=== PATIENT | female | born 1935 | race Caucasian/White ===

== ENCOUNTER 2018-07-21 18:30 | Inpatient (IN) | payer OTHER ==
[~2018-07-21] VITALS: Ht 167.6 cm; Wt 79.8 kg
[2018-07-21 18:44] VITALS: BP 169/83
[2018-07-21] MEDS ORDERED: UNICOMPLEX M TA1 TA1 PO (18:54)
[2018-07-21] MEDS ORDERED: CALCIUM 500 +1 EAC5 PO (18:54)
[2018-07-21] MEDS ORDERED: GLUCOSAMINE HC500 MG PO (18:54)
[2018-07-21] MEDS ORDERED: ASPIR 8181 MG PO (18:55)
[2018-07-21] MEDS ORDERED: ARICEPT 5 MG TAB5 MG PO (18:55)
[2018-07-21] MEDS ORDERED: ALEVE220 MG PO (18:55)
[2018-07-21] MEDS ORDERED: LEXAPRO20 MG PO (18:55)
[2018-07-21 19:25] LABS: ABSOLUTE LYMPHOCYTES 0.7 thou/uL (0.8-5.3); ABSOLUTE MONOCYTES 0.6 thou/uL (0.0-1.2); ABSOLUTE NEUTROPHILS 3.1 thou/uL (1.6-8.1); BASOPHILS 0.8 %; EOSINOPHILS 1.1 %; HEMATOCRIT 42.5 % (37.0-47.0); HEMOGLOBIN 14.3 gm/dL (12.0-15.0); LYMPHOCYTES 15.6 %; MCHC 33.6 g/dL (28.0-37.0); MCV 95.4 fL (80.0-100.0); MONOCYTES 14.1 %; MPV 9.9 fl. (7.2-11.1); NUCLEATED RBCS 0 /100WBC; PLATELET COUNT* 126 thou/uL (150-400); POLYS 68.4 %; RBC 4.46 mil/uL (4.20-5.00); RDW-CV 13.2 % (10.5-14.5); WBC 4.5 thou/uL (4.0-11.0)
[2018-07-21 19:30] VITALS: BP 178/88
[2018-07-21 19:35] LABS: ANION GAP 8 mmol/L (7-16); APTT 25.9 Seconds (25.0-31.3); BUN 25 mg/dL (7-18); CALCIUM 8.5 mg/dL (8.5-10.1); CHLORIDE 104 mmol/L (98-107); CO2 27 mmol/L (21-32); GLUCOSE 185 mg/dL (70-99); POTASSIUM 3.3 mmol/L (3.5-5.1); PROTIME 10.2 Seconds (9.20-11.50); SODIUM 139 mmol/L (136-145)
[2018-07-21 19:54] LABS: ALBUMIN 3.4 g/dL (3.4-5.0); ALKALINE PHOSPHATASE 150 U/L (46-116); CK-MB MASS 2.6 ng/mL (<0.5-3.6); NT-PRO BRAIN NAT PEPTIDE 136 pg/mL (<300); SGOT 22 U/L (15-37); SGPT 19 U/L (30-65); TOTAL BILIRUBIN 0.3 mg/dL (<0.1-1.0); TOTAL PROTEIN 6.4 g/dL (6.4-8.2); TROPONIN-I LEVEL <0.06 ng/mL (<0.06)
[2018-07-21 20:22] LABS: URINE BILIRUBIN NEGATIVE (Negative); URINE BLOOD NEGATIVE (Negative); URINE CLARITY CLEAR; URINE COLOR YELLOW; URINE GLUCOSE-RANDOM NEGATIVE (Negative); URINE KETONES NEGATIVE (Negative); URINE LEUKOCYTES-REFLEX NEGATIVE (Negative); URINE PROTEIN NEGATIVE (Negative); URINE SPECIFIC GRAVITY >= 1.030 (1.005-1.030); URINE UROBILINOGEN 0.2 E.U./dl (0.2-1.0)
[2018-07-21 20:27] LABS: CASTS None Seen /LPF (None Seen); CRYSTALS None Seen /LPF (None Seen); SQUAMOUS 0-3 Few /LPF (0-3); URINE NITRITE-REFLEX POSITIVE (Negative); URINE RBC 0-2 Rare /HPF (0-2); URINE WBC-REFLEX 6-15 Few /HPF (0-5)
[2018-07-21 20:46] VITALS: BP 172/90
[2018-07-22] VITALS (7 sets, daily range): BP systolic 148–181; BP diastolic 70–91
--- NOTE | 2018-07-22 09:21 | EKG ---
[place] [address] ELECTROCARDIOGRAM REPORT Name: BRITANY COOPER Room: [address] ADM IN [facility]#: [id number] Admission: 07/21/18 Attend Phys: Aarti Griffin Discharge: Date of : 33 Report #: [id number] THIS REPORT FOR: //name// [facility] ED Test Date: 2018-07-21 Test Time: 19:34:50 Pat Name: BRITANY COOPER Department: Room: [facility] Gender: F Housetrailer Servicer: Zuleyma PERALTA : 1935 Requested By: Armando Cancino Order Number: [id number] MD: Shan De La Torre Measurements Intervals [place] Rate: 90 P: 49 FL: 223 QRS: -1 QRSD: 89 T: 63 QT: 382 QTc: 468 Interpretive Statements Sinus rhythm Prolonged FL interval LVH with secondary repolarization abnormality Baseline wander in lead(s) II,aVF No previous ECG available for comparison Electronically Signed On 07-22-2018 9:21:40 [employer]ODU[employer] SALES REPRESENTATIVE by Shan De La Torre [email or web address] <ELECTRONICALLY SIGNED> By: Shan De La Torre MD, [facility] 07/22/18 0921 33 33 Shan De La Torre MD, [facility] /EPI
[2018-07-23] VITALS: BP 168/73
[2018-07-23 04:00] VITALS: BP 173/82
[2018-07-23 08:00] VITALS: BP 185/84
[2018-07-23] MEDS ORDERED: KEFLEX500 M2 PO (10:58)
[2018-07-23 11:00] VITALS: BP 185/84
[2018-07-23 12:00] VITALS: BP 164/81
== END 2018-07-23 13:55 | disposition home or self-care (01) | DRG 690 ==
LOC: M.ERS 18:30 → M.2W 20:09 → M.TBA-ER 20:09 → M.2W 21:33
PROVIDERS: Family Medicine; ADMIT Internal Medicine
DX: N39.0 Urinary tract infection, site not specified (principal); F03.90 Unspecified dementia, unspecified severity, without behavioral disturbance, psychotic disturbance, mood disturbance, and anxiety; R41.0 Disorientation, unspecified; M19.90 Unspecified osteoarthritis, unspecified site; Z90.11 Acquired absence of right breast and nipple; Z85.3 Personal history of malignant neoplasm of breast; Z88.2 Allergy status to sulfonamides; Z88.8 Allergy status to other drugs, medicaments and biological substances; Z87.891 Personal history of nicotine dependence; Z79.899 Other long term (current) drug therapy

== ENCOUNTER 2018-09-15 18:58 | Inpatient (IN) | payer OTHER ==
[~2018-09-15] VITALS: Ht 175.3 cm; Wt 79.6 kg
[~2018-09-15 18:58] MED LIST: ALEVE220 MG PO; ARICEPT 5 MG TAB5 MG PO; ASPIR 8181 MG PO; CALCIUM 500 +1 EAC5 PO; GLUCOSAMINE HC500 MG PO; KEFLEX500 M2 PO; LEXAPRO20 MG PO; UNICOMPLEX M TA1 TA1 PO
[2018-09-15 19:16] VITALS: BP 148/74
[2018-09-15] MEDS ORDERED: KLOR-CON 1010 MEQ PO (19:23)
[2018-09-15] MEDS ORDERED: LASIX 40 MG TAB40 M2 PO (19:24)
[2018-09-15] MEDS ORDERED: IPRAT-ALBUT 0.5-3 ML INH (19:24)
[2018-09-15] MEDS ORDERED: ACETAMINOPHEN325 M3 PO (19:25)
[2018-09-15] MEDS ORDERED: MAGIC MOUTHWASH SWISH&SPIT (19:25)
[2018-09-15 19:36] LABS: INFLUENZA B ANTIGEN None Detected (None Detect)
[2018-09-15 19:48] LABS: HEMATOCRIT 42.2 % (37.0-47.0); HEMOGLOBIN 14.2 gm/dL (12.0-15.0); MCH 31.3 pg (26.0-34.0); MCHC 33.6 g/dL (28.0-37.0); MCV 93.4 fL (80.0-100.0); MPV 9.2 fl. (7.2-11.1); NUCLEATED RBCS 0 /100WBC; PLATELET COUNT* 114 thou/uL (150-400); RBC 4.52 mil/uL (4.20-5.00); RDW-CV 13.4 % (10.5-14.5); WBC 3.7 thou/uL (4.0-11.0)
[2018-09-15 20:04] LABS: ANION GAP 12 mmol/L (7-16); BUN 27 mg/dL (7-18); CHLORIDE 103 mmol/L (98-107); CO2 25 mmol/L (21-32); CREATININE 1.2 mg/dL (0.6-1.3); GLUCOSE 197 mg/dL (70-99); POTASSIUM 3.6 mmol/L (3.5-5.1); SODIUM 140 mmol/L (136-145); TROPONIN-I LEVEL <0.06 ng/mL (<0.06)
[2018-09-15 20:05] LABS: ALBUMIN 3.8 g/dL (3.4-5.0); ALKALINE PHOSPHATASE 126 U/L (46-116); NT-PRO BRAIN NAT PEPTIDE 256 pg/mL (<300); SGOT 21 U/L (15-37); SGPT 18 U/L (30-65); TOTAL BILIRUBIN 0.5 mg/dL (<0.1-1.0); TOTAL PROTEIN 7.2 g/dL (6.4-8.2)
[2018-09-15 20:16] LABS: ABSOLUTE LYMPHOCYTES 0.1 thou/uL (0.8-5.3); ABSOLUTE MONOCYTES 0.3 thou/uL (0.0-1.2); ABSOLUTE NEUTROPHILS 3.3 thou/uL (1.6-8.1); PLATELET ESTIMATE ADEQUATE
[2018-09-15 21:48] VITALS: BP 159/78
[2018-09-15 22:00] VITALS: BP 148/82
[2018-09-16 07:55] VITALS: BP 116/97
--- NOTE | 2018-09-16 12:17 | EKG ---
[place] [address] ELECTROCARDIOGRAM REPORT Name: BRITANY COOPER Room: [address] ADM IN .R.#: [id number] Admission: 09/16/18 Attend Phys: Garcia Gomez MD Discharge: Date of : 34 Report #: [id number] THIS REPORT FOR: //name// [facility] ED Test Date: 2018-09-15 Test Time: 19:42:48 Pat Name: BRITANY COOPER Department: Room: [facility] Gender: F Audio Visual Specialist: Zuleyma PERALTA : 1935 Requested By: Erika Vazquez Order Number: [id number] MD: Sid Allen Measurements Intervals [place] Rate: 97 P: 44 MN: 189 QRS: 3 QRSD: 88 T: 44 QT: 357 QTc: 454 Interpretive Statements Sinus rhythm Probable left atrial enlargement Abnormal R-wave progression, early transition Left ventricular hypertrophy Baseline wander in lead(s) II,III,aVF Compared to ECG 07/21/2018 19:34:50 First degree AV block no longer present Early repolarization no longer present Electronically Signed On 09-16-2018 12:16:44 CDT by Sid Allen [email or web address] <ELECTRONICALLY SIGNED> By: Sid Allen MD, [facility] 09/16/18 1216 41 41 Sid Allen MD, [facility] /EPI
[2018-09-16 15:52] LABS: URINE BILIRUBIN NEGATIVE (Negative); URINE BLOOD TRACE (Negative); URINE CLARITY CLEAR; URINE COLOR YELLOW; URINE GLUCOSE-RANDOM NEGATIVE (Negative); URINE KETONES 1+ (Negative); URINE LEUKOCYTES-REFLEX NEGATIVE (Negative); URINE PROTEIN TRACE (Negative); URINE SPECIFIC GRAVITY >= 1.030 (1.005-1.030); URINE UROBILINOGEN 0.2 E.U./dl (0.2-1.0)
[2018-09-16 15:57] LABS: URINE NITRITE-REFLEX POSITIVE (Negative)
[2018-09-16 16:03] LABS: CASTS None Seen /LPF (None Seen); CRYSTALS None Seen /LPF (None Seen); SQUAMOUS 0-3 Few /LPF (0-3); URINE RBC 0-2 Rare /HPF (0-2); URINE WBC-REFLEX 0-5 Rare /HPF (0-5)
[2018-09-16 16:30] VITALS: BP 148/76
[2018-09-16 20:00] VITALS: BP 148/78
[2018-09-17 04:54] LABS: ABSOLUTE LYMPHOCYTES 0.9 thou/uL (0.8-5.3); ABSOLUTE MONOCYTES 0.5 thou/uL (0.0-1.2); ABSOLUTE NEUTROPHILS 1.5 thou/uL (1.6-8.1); BASOPHILS 0.5 %; HEMATOCRIT 41.8 % (37.0-47.0); HEMOGLOBIN 14.1 gm/dL (12.0-15.0); LYMPHOCYTES 29.9 %; MCH 31.2 pg (26.0-34.0); MCHC 33.9 g/dL (28.0-37.0); MCV 92.1 fL (80.0-100.0); MONOCYTES 15.9 %; MPV 9.3 fl. (7.2-11.1); NUCLEATED RBCS 0 /100WBC; PLATELET COUNT* 87 thou/uL (150-400); POLYS 53.7 %; RBC 4.54 mil/uL (4.20-5.00); RDW-CV 13.5 % (10.5-14.5); WBC 2.9 thou/uL (4.0-11.0)
[2018-09-17 05:35] LABS: CALCIUM 7.6 mg/dL (8.5-10.1); CREATININE 0.6 mg/dL (0.6-1.3); POTASSIUM 3.4 mmol/L (3.5-5.1)
[2018-09-17 08:00] VITALS: BP 155/74
[2018-09-17 17:19] VITALS: BP 148/72
[2018-09-17 20:26] VITALS: BP 163/82
[2018-09-18 07:25] VITALS: BP 159/78
[2018-09-18 16:00] VITALS: BP 161/95
[2018-09-18 20:00] VITALS: BP 146/76
[2018-09-19 04:27] LABS: ABSOLUTE LYMPHOCYTES 0.8 thou/uL (0.8-5.3); ABSOLUTE MONOCYTES 0.4 thou/uL (0.0-1.2); ABSOLUTE NEUTROPHILS 1.3 thou/uL (1.6-8.1); BASOPHILS 0.4 %; EOSINOPHILS 0.1 %; HEMATOCRIT 40.7 % (37.0-47.0); HEMOGLOBIN 13.6 gm/dL (12.0-15.0); MCH 30.7 pg (26.0-34.0); MCHC 33.4 g/dL (28.0-37.0); MONOCYTES 14.8 %; MPV 9.6 fl. (7.2-11.1); NUCLEATED RBCS 0 /100WBC; PLATELET COUNT* 96 thou/uL (150-400); POLYS 50.7 %; RBC 4.42 mil/uL (4.20-5.00); RDW-CV 12.9 % (10.5-14.5); WBC 2.5 thou/uL (4.0-11.0)
[2018-09-19 04:58] LABS: CALCIUM 8.4 mg/dL (8.5-10.1); CREATININE 0.7 mg/dL (0.6-1.3); POTASSIUM 3.3 mmol/L (3.5-5.1)
[2018-09-19 07:21] VITALS: BP 170/83
[2018-09-19 21:40] VITALS: BP 147/92
[2018-09-20 04:02] LABS: HEMATOCRIT 42.1 % (37.0-47.0); HEMOGLOBIN 14.1 gm/dL (12.0-15.0); MCH 30.7 pg (26.0-34.0); MCHC 33.4 g/dL (28.0-37.0); MCV 91.8 fL (80.0-100.0); MPV 9.7 fl. (7.2-11.1); RBC 4.58 mil/uL (4.20-5.00); WBC 3.6 thou/uL (4.0-11.0)
[2018-09-20 04:11] LABS: CALCIUM 8.1 mg/dL (8.5-10.1); CREATININE 0.7 mg/dL (0.6-1.3); MAGNESIUM 1.5 mg/dL (1.8-2.4); POTASSIUM 3.1 mmol/L (3.5-5.1)
[2018-09-20 07:21] VITALS: BP 173/91
[2018-09-20 17:05] LABS: MAGNESIUM 2.5 mg/dL (1.8-2.4)
[2018-09-20 17:06] LABS: POTASSIUM 4.3 mmol/L (3.5-5.1)
[2018-09-20 18:12] VITALS: BP 156/83
[2018-09-20 21:40] VITALS: BP 147/84
[2018-09-21 07:28] VITALS: BP 126/81
[2018-09-21] MEDS ORDERED: LEVAQUIN 750 M750 MG PO (11:12)
[2018-09-21 11:15] VITALS: BP 126/81
[2018-09-21 16:00] VITALS: BP 127/73
[2018-09-21 20:00] VITALS: BP 154/85
[2018-09-22 07:30] VITALS: BP 152/83
[2018-09-22 16:00] VITALS: BP 145/73
[2018-09-22 19:50] VITALS: BP 126/76
[2018-09-23 08:15] VITALS: BP 146/86
[2018-09-23 16:00] VITALS: BP 120/78
[2018-09-24] VITALS: BP 149/81
[2018-09-24 08:20] VITALS: BP 146/84
== END 2018-09-24 15:10 | DRG 193 ==
LOC: M.ERS 18:58 → M.3W 20:36 → M.TBA-ER 20:36 → M.3W 20:36
PROVIDERS: Internal Medicine; Nurse Practitioner Family; ADMIT Internal Medicine
DX: J10.1 Influenza due to other identified influenza virus with other respiratory manifestations (principal); G93.41 Metabolic encephalopathy; J96.91 Respiratory failure, unspecified with hypoxia; N39.0 Urinary tract infection, site not specified; R65.10 Systemic inflammatory response syndrome (SIRS) of non-infectious origin without acute organ dysfunction; F03.90 Unspecified dementia, unspecified severity, without behavioral disturbance, psychotic disturbance, mood disturbance, and anxiety; D69.6 Thrombocytopenia, unspecified; D72.819 Decreased white blood cell count, unspecified; B96.20 Unspecified Escherichia coli [E. coli] as the cause of diseases classified elsewhere; E87.6 Hypokalemia; E83.42 Hypomagnesemia; M19.90 Unspecified osteoarthritis, unspecified site; Z90.11 Acquired absence of right breast and nipple; Z85.3 Personal history of malignant neoplasm of breast; Z87.891 Personal history of nicotine dependence; Z88.2 Allergy status to sulfonamides; Z88.8 Allergy status to other drugs, medicaments and biological substances; Z79.82 Long term (current) use of aspirin; Z79.899 Other long term (current) drug therapy

== ENCOUNTER 2019-01-19 09:41 | Inpatient (IN) | payer OTHER ==
[~2019-01-19] VITALS: Ht 170.2 cm; Wt 76.7 kg
[~2019-01-19 09:41] MED LIST changes: +ACETAMINOPHEN325 M3 PO; +IPRAT-ALBUT 0.5-3 ML INH; +KLOR-CON 1010 MEQ PO; +LASIX 40 MG TAB40 M2 PO; +LEVAQUIN 750 M750 MG PO; +MAGIC MOUTHWASH SWISH&SPIT
[2019-01-19 09:43] VITALS: BP 161/77
--- NOTE | 2019-01-19 09:47 | NUR ---
PT DPOA CONTACTED AND PERMISSION GIVEN TO TREAT. VERIFIED BY 2 RN'S JULIO AND EZRA.
[2019-01-19] MEDS ORDERED: CLARITIN10 MG PO (09:50)
[2019-01-19 10:22] LABS: HEMATOCRIT 44.5 % (37.0-47.0); HEMOGLOBIN 14.9 gm/dL (12.0-15.0); MCH 31.5 pg (26.0-34.0); MCHC 33.5 g/dL (28.0-37.0); MCV 94.1 fL (80.0-100.0); MPV 9.3 fl. (7.2-11.1); NUCLEATED RBCS 0 /100WBC; PLATELET COUNT* 157 thou/uL (150-400); RBC 4.73 mil/uL (4.20-5.00); RDW-CV 12.9 % (10.5-14.5); WBC 9.8 thou/uL (4.0-11.0)
[2019-01-19 10:31] LABS: ANION GAP 8 mmol/L (7-16); BUN 24 mg/dL (7-18); CHLORIDE 104 mmol/L (98-107); CO2 30 mmol/L (21-32); CREATININE 0.8 mg/dL (0.6-1.3); GLUCOSE 165 mg/dL (70-99); POTASSIUM 4.1 mmol/L (3.5-5.1); SODIUM 142 mmol/L (136-145)
[2019-01-19 10:32] LABS: PROTIME 10.4 Seconds (9.20-11.50)
[2019-01-19 10:48] LABS: ALBUMIN 3.7 g/dL (3.4-5.0); ALKALINE PHOSPHATASE 145 U/L (46-116); SGOT 21 U/L (15-37); SGPT 21 U/L (30-65); TOTAL BILIRUBIN 0.4 mg/dL (<0.1-1.0); TOTAL PROTEIN 7.7 g/dL (6.4-8.2); TROPONIN-I LEVEL <0.06 ng/mL (<0.06)
[2019-01-19 10:57] LABS: ABSOLUTE LYMPHOCYTES 0.3 thou/uL (0.8-5.3); ABSOLUTE MONOCYTES 0.4 thou/uL (0.0-1.2); ABSOLUTE NEUTROPHILS 9.1 thou/uL (1.6-8.1)
[2019-01-19 10:58] LABS: PLATELET ESTIMATE ADEQUATE
[2019-01-19 11:20] LABS: URINE BILIRUBIN NEGATIVE (Negative); URINE BLOOD 1+ (Negative); URINE COLOR YELLOW; URINE GLUCOSE-RANDOM NEGATIVE (Negative); URINE KETONES 1+ (Negative); URINE LEUKOCYTES-REFLEX 1+ (Negative); URINE PROTEIN 2+ (Negative); URINE SPECIFIC GRAVITY >= 1.030 (1.005-1.030); URINE UROBILINOGEN 0.2 E.U./dl (0.2-1.0)
[2019-01-19 11:21] LABS: URINE CLARITY CLOUDY; URINE NITRITE-REFLEX POSITIVE (Negative)
--- NOTE | 2019-01-19 11:25 | NUR ---
ANNAMARIA NOTIFIED UPON PT RETURN FROM CT. PT CONNECTED TO PULSE OX AND BP MONITOR SHE WAS PRIOR TO GOING TO CT
[2019-01-19 11:27] LABS: SQUAMOUS >10 Many /LPF (0-3)
[2019-01-19 11:28] LABS: BACTERIA-REFLEX >30 Many /HPF (None Seen)
[2019-01-19 11:29] LABS: CASTS None Seen /LPF (None Seen); CRYSTALS None Seen /LPF (None Seen); MUCUS >6 Heavy strn/LPF (None Seen)
[2019-01-19 12:11] VITALS: BP 187/72
[2019-01-19 12:30] VITALS: BP 197/99
[2019-01-19 14:32] LABS: MAGNESIUM 2.1 mg/dL (1.8-2.4); PHOSPHORUS* 3.2 mg/dL (2.5-4.9)
[2019-01-19 16:00] VITALS: BP 151/71
--- NOTE | 2019-01-19 16:49 | NUR ---
RECEIVED REPORT AT ER AT 1230. PT AXO2, CONFUSED. O2 SAT 90'S RA. TELE IN PLACED TRACING SR ON MONITOR. DENIES PAIN. LAST BM 01/18/19. IV ACCESS INTACT, ANTIBIOTIC, FLUIDS ON GOING. L LIMB ALERT, HIGH FALL RISK, EDEMA NOTED ON BILATERAL LOWER EXTREMITY. ON INITIAL VS, BP IS HIGH. HYDRALAZINE GIVEN. PT D.DIMER ELEVATED. PT HAS PULMONOLOGY AND NEUROLOGY CONSULT. ADMISSION ASSESSMENT CHARTED. MEDS GIVEN PER AUG. HOURLY ROUNDING, BED ALARM. WILL CONTINUE TO MONITOR.
--- NOTE | 2019-01-19 19:26 | EKG ---
[place] [address] ELECTROCARDIOGRAM REPORT Name: ALLISONRUBENMAXIMO Cannon Room: [address] IN ..#: [id number] Admission: 01/19/19 Attend Phys: Bayron Salter, Discharge: Date of : 34 Report #: [id number] THIS REPORT FOR: //name// [facility] ED Test Date: 2019-01-19 Test Time: 10:18:21 Pat Name: BRITANY COOPER Department: Room: [facility] Gender: F Research Physiologist: : 1935 Requested By: Terrance Simpson Order Number: [id number] MD: Reginaldo Oconnell Measurements Intervals [place] Rate: 75 P: 65 AR: 184 QRS: 0 QRSD: 95 T: 10 QT: 428 QTc: 479 Interpretive Statements Sinus rhythm Left ventricular hypertrophy, by voltage Compared to ECG 09/15/2018 19:42:48 No significant changes Electronically Signed On 01-19-2019 19:26:10 CDT by Reginaldo Oconnell [email or web address] <ELECTRONICALLY SIGNED> By: Reginaldo Oconnell MD, [facility] 01/19/19 192 [id number] Reginaldo Oconnell MD, [facility] /EPI
[2019-01-19 19:40] VITALS: BP 148/67
[2019-01-20] VITALS: BP 166/82
[2019-01-20 04:00] VITALS: BP 169/83
[2019-01-20 04:11] LABS: HEMATOCRIT 39.5 % (37.0-47.0); MCH 31.4 pg (26.0-34.0); MCV 95.1 fL (80.0-100.0); MPV 8.9 fl. (7.2-11.1); RBC 4.15 mil/uL (4.20-5.00); RDW-CV 12.7 % (10.5-14.5); WBC 6.2 thou/uL (4.0-11.0)
[2019-01-20 04:31] LABS: ALBUMIN 2.8 g/dL (3.4-5.0); ALKALINE PHOSPHATASE 99 U/L (46-116); ANION GAP 6 mmol/L (7-16); BUN 17 mg/dL (7-18); CALCIUM 8.2 mg/dL (8.5-10.1); CHLORIDE 108 mmol/L (98-107); CO2 30 mmol/L (21-32); CREATININE 0.6 mg/dL (0.6-1.3); GLUCOSE 101 mg/dL (70-99); POTASSIUM 3.7 mmol/L (3.5-5.1); SGOT 17 U/L (15-37); SGPT 18 U/L (30-65); SODIUM 144 mmol/L (136-145); TOTAL BILIRUBIN 0.5 mg/dL (<0.1-1.0); TROPONIN-I LEVEL <0.06 ng/mL (<0.06)
[2019-01-20 08:00] VITALS: BP 155/81
--- NOTE | 2019-01-20 10:44 | NUR ---
ASSUMED PT CARE AT 0800, PT AOX2, UP WITH ASSIST. O2 SAT 90'S 2L NC. TRACING SR ON TELE. PT INCONTINENT, Q2 TURN, FALL RISK, BED ALARM. SCD ON. LIMB ALERT ON R ARM. PT NEED HELP WITH MEAL, ON MECHANICAL SOFT DIET. VSS, AM ASSESSMENT CHARTED. MEDS GIVEN PER AUG. CALL LIGHT WITHIN REACH. WILL CONTINUE TO MONITOR.
[2019-01-20 12:43] VITALS: BP 148/69
--- NOTE | 2019-01-20 14:33 | NUR ---
MET WITH PT. SHE IS CONFUSED. SPOKE WITH ASHLEY/HELLEN OVER THE PHONE. SHE STATED SHE IS IN [place] AND THAT HER DIL/ANITHA IS WATCHING OVER PT. ASKED NURSES TO GET ANITHA'S NUMBER WHEN SHE COMES TO SEE PT. PT LIVES AT [facility] IN ASSISTED LIVING, NORMALLY WALKS WITH WALKER. SHE IS CONFUSED. PT HAS BEEN TO SNF THERE IN SEPTEMBER AND MOVED BACK TO [facility] IN OCTOBER. UPDATED DTR ON POC AND SHE STATED IT WAS FINE TO CALL HER. DPOA PAPERS ON CHART. WILL FOLLOW
[2019-01-20 16:39] VITALS: BP 168/69
[2019-01-20 19:30] VITALS: BP 177/75
[2019-01-21] VITALS: BP 167/86
[2019-01-21 04:00] VITALS: BP 169/83
[2019-01-21 04:38] LABS: HEMATOCRIT 42.3 % (37.0-47.0); MCH 30.9 pg (26.0-34.0); MCV 93.7 fL (80.0-100.0); MPV 8.7 fl. (7.2-11.1); RBC 4.52 mil/uL (4.20-5.00); RDW-CV 12.7 % (10.5-14.5); WBC 5.3 thou/uL (4.0-11.0)
[2019-01-21 04:53] LABS: ALBUMIN 2.9 g/dL (3.4-5.0); CALCIUM 8.5 mg/dL (8.5-10.1); CREATININE 0.6 mg/dL (0.6-1.3); MAGNESIUM 1.9 mg/dL (1.8-2.4); TOTAL BILIRUBIN 0.6 mg/dL (<0.1-1.0); TOTAL PROTEIN 6.7 g/dL (6.4-8.2)
[2019-01-21 08:00] VITALS: BP 155/85
[2019-01-21 08:10] VITALS: BP 155/85
[2019-01-21 12:31] VITALS: BP 146/78
--- NOTE | 2019-01-21 13:01 | NUR ---
GENTAMICIN PHARMACY TO DOSE: NEW ORDER FOR PHARMACY TO DOSE FOR UTI. PATIENT DOSED BASED ON EXTENDED INTERVAL AMINOGLYCOSIDE DOSING. PHARMACY BEGAN DOSING AT GENTAMICIN 5 MG/KG BASED ON ADJUSTED BODY WEIGHT Q24H. A RANDOM LEVEL IS ORDERED FOR 01/21 @ 2200. AFTER LEVEL IS BACK WILL ADJUST DOSING BASED ON ELENA NOMOGRAM. PHARMACY WILL CONTINUE TO FOLLOW AND MONITOR.
[2019-01-21 15:53] VITALS: BP 143/71
--- NOTE | 2019-01-21 18:29 | NUR ---
RECEIVED REPORT FROM WILL RN. ASSUMED CARE OF PT AROUND 0730. PT ORIENTED TO SELF, CONFUSED AND FORGETFUL. MOTION STUDY ENGINEER IN PLACE TRACING SR WITH NO CHANGES THIS SHIFT. AM ASSESSMENT AND VITALS COMPLETED CHARTED. IV INTACT. MEDS PER EMAR. PT NEEDING ASSISTANCE WITH MEALS, APPETITE GOOD. INCONTINENT - PT CLEANED AND LINENS CHANGED. FMAILY VISITED THIS AFTERNOON. PT ABLE TO SIT UP ON SIDE OF BED WITH PT. PT BEING TURNED Q2HRS. FALL PRECAUTIONS IN PLACE. CALL LIGHT IS WITHIN REACH. HOURLY ROUNDING PERFORMED.
[2019-01-22] VITALS: BP 175/86
[2019-01-22 04:00] VITALS: BP 149/79
[2019-01-22 04:37] LABS: HEMATOCRIT 40.3 % (37.0-47.0); HEMOGLOBIN 13.5 gm/dL (12.0-15.0); MCH 30.9 pg (26.0-34.0); MCHC 33.4 g/dL (28.0-37.0); MCV 92.6 fL (80.0-100.0); MPV 8.6 fl. (7.2-11.1); RBC 4.36 mil/uL (4.20-5.00); RDW-CV 12.5 % (10.5-14.5); WBC 5.3 thou/uL (4.0-11.0)
[2019-01-22 04:56] LABS: ALBUMIN 2.7 g/dL (3.4-5.0); CALCIUM 8.2 mg/dL (8.5-10.1); CREATININE 0.6 mg/dL (0.6-1.3); MAGNESIUM 1.8 mg/dL (1.8-2.4); POTASSIUM 3.7 mmol/L (3.5-5.1); TOTAL BILIRUBIN 0.6 mg/dL (<0.1-1.0); TOTAL PROTEIN 6.2 g/dL (6.4-8.2)
[2019-01-22 08:00] VITALS: BP 168/78
--- NOTE | 2019-01-22 10:23 | NUR ---
ASSUMED CARE OF PT AT 0730. PT RESTING IN BED. PT A&0X2, DENIES ANY PAIN OR SHORTNESS OF BREATH AT THIS TIME. DEMENTIA NOTED. PT FORGETFUL AND CONFUSED AT TIMES. PT TRACING SR ON THE DIRECTOR OF OUTREACH. ON 2L NC SAT 95%. PT INCONT OF BOWEL AND BLADDER. PT ON MECHANICAL CHOPPED DIET WITH NECTAR THICKENED LIQUIDS PENDING SPEECH THERAPY EVAL. PT REQUIRES ASSIST WITH MEALS. INFECTIOUS DISEASE HERE TO SEE PT. ORDERS RECEIVED TO DISCONTINUE GENTAMYCIN AND RE CHECK URINALYSIS TOMORROW 01/23. PT GOAL FOR TODAY IS TO INCREASE ACTIVITY. AM ASSESSMENT CHARTED. MEDICATIONS PER AUG WHOLE IN PUDDING. PT REPOSITIONED EVERY 2 HOURS FOR COMFORT. HOURLY ROUNDING OBSERVED. BED IN LOW POSITION. BED ALARM IN PLACE. FALL PRECAUTIONS IN PLACE. CALL LIGHT WITHIN REACH. WILL CONTINUE PLAN OF CARE.
[2019-01-22 11:31] VITALS: BP 119/61
[2019-01-22 15:14] VITALS: BP 168/88
--- NOTE | 2019-01-22 19:16 | NUR ---
NO ACUTE CHANGES THROUGHOUT SHIFT. REFER TO CHARTING. PT DAUGHTER HERE THIS AFTERNOON. PT DENIES ANY PAIN OR SHORTNESS OF BREATH. REQUIRES ASSIST WITH ALL MEALS-APPETITE GOOD TODAY. MEDICATIONS PER AUG. PT REPOSITIONED EVERY 2 HOURS FOR COMFORT. PT INCONT OF BOWEL AND BLADDER. HOURLY ROUNDING OBSERVED. BED IN LOW POSITION. BED ALARM IN PLACE. FALL PRECAUTIONS IN PLACE. CALL LIGHT WITHIN REACH. WILL CONTINUE PLAN OF CARE.
[2019-01-22 20:10] VITALS: BP 147/71
[2019-01-23] VITALS: BP 142/77
[2019-01-23 04:00] VITALS: BP 167/76
--- NOTE | 2019-01-23 07:10 | CON ---
[address] [address] CONSULTATION Name: BRITANY COOPER Room: [address] IN ..#: [id number] Admission: 01/19/19 Attend Phys: Bayron Salter, Discharge: Date of : 34 Report #: [id number] THIS REPORT FOR: //name// CC: Lacho Salter DATE OF SERVICE: 01/20/2019 INFECTIOUS DISEASE CONSULTATION ATTENDING PHYSICIAN: Bayron Salter MD. REASON FOR EVALUATION: Pneumonitis and complicated urinary tract infection. HISTORY OF PRESENT ILLNESS: The patient is an 83-year-old woman with history of dementia and frequent urinary tract infections, who normally resides in a nursing facility. She was found to be worsening in terms of her mental status over several days previously, progressive weakness led to inability to stand and ambulate, not aware of fevers, does admit to some mild dyspnea. Evaluation was undertaken. Chest x-ray showed mediastinal widening, possible mass versus infiltrate. Lactic acid was elevated at 2.6. Urinalysis did show moderate to marked pyuria, marked bacteriuria. Followup CT chest showed thromboembolic disease, multiple partially occlusive filling defects within the pulmonary arteries consistent with thromboembolic issue. Today, she is still fairly confused, does admit to some moderate degree of discomfort. She is empirically placed on therapy with levofloxacin. ALLERGIES: BACTRIM, NITROFURANTOIN, CEFUROXIME, LATER WHICH CAUSES A RASH AND URTICARIA. MEDICATIONS: Include amlodipine, levofloxacin, multivitamin, calcium carbonate, citalopram, aspirin, loratadine, donepezil, hydralazine p.r.n., ipratropium, and albuterol inhalers. PAST MEDICAL HISTORY: As described above, history of breast cancer with right-sided mastectomy, osteoarthritis, and dementia. SOCIAL HISTORY: Nonsmoker. No ethanol. FAMILY HISTORY: Noncontributory. REVIEW OF SYSTEMS: Not reliably obtained. PHYSICAL EXAMINATION: GENERAL: Somewhat of a diminished affect. She does make eye contact. She appears chronically ill, [place] [address] CONSULTATION Name: BRITANY COOPER Room: [address]#: [id number] Admission: 01/19/19 Attend Phys: Bayron Salter, Discharge: Date of : 34 Report #: [id number] VITAL SIGNS: Temperature 98.7, pulse 72, respirations 16, and blood pressure 140/69. SKIN: Warm and dry. No rashes. HEENT: Otherwise unremarkable. Normocephalic. Extraocular muscles are intact. NECK: Supple. LUNGS: Diminished breath sounds. Few scattered crackles, primarily at the bases. HEART: Irregular. I do not appreciate any murmur. ABDOMEN: Soft, nontender, and nondistended. EXTREMITIES: No cyanosis. GENITOURINARY AND RECTAL: Deferred. LABORATORY DATA: Blood cultures are sterile thus far. Initial lactic acid of 2.6, repeat serially was 2.0 and 0.7. Electrolytes: Sodium 142, potassium 4.1, chloride 104, bicarbonate 30, anion gap 8, BUN and creatinine 24 and 0.8, glucose of 165. Albumin 3.7 and total protein 7.7. Estimated GFR of 68. LFTs normal. CBC: White count of 9.8, H and H of 14.9 and 44.5, platelets of 157. Lymphocytopenia of 300. CTA chest PE protocol, moderate pulmonary thromboembolic disease with linear saddleback thrombus, no evidence of aneurysm or dissection, elevated biliary tract, and possible left lower lobe early infarct versus consolidation. ASSESSMENT AND PLAN: Complicated urinary tract infection. The patient has known history of recurrent infections. We will dose with gentamicin and the concern there may be quinolone resistant organism associated with it. There are issues with hypersensitivities due to sulfa as well as cephalosporins. At this point, she is not overtly toxic. It is difficult to ascertain whether there is no pneumonia or simply part of the thromboembolic disease. She is on supplemental oxygen at 2 liters per nasal cannula. Thank you and we will follow. <ELECTRONICALLY SIGNED> By: Ruy Salmeron MD 01/23/19 0710 1311 [id number] Salmeron MD /nt
--- NOTE | 2019-01-23 07:45 | NUR ---
VSS. SEE MAR. SEE CHARTING. FALL PREACUTIONS IN PLACE. HOURLY ROUNDING FOR SAFETY.
[2019-01-23 08:00] VITALS: BP 142/68
--- NOTE | 2019-01-23 10:00 | NUR ---
ASSUMED CARE OF PT AT 0730. PT RESTING IN BED. PT A&0X2, FORGETFUL AND CONFUSED AT TIMES. DEMENTIA NOTED. PT DENIES ANY PAIN OR SHORTNESS OF BREATH AT THIS TIME. PT TRACING SR ON THE AGING ROOM HAND. ON 2L NC SAT UPPER 90'S. PT FEBRILE THIS AM-101.2. PRN TYLENOL GIVEN WITH PARTIAL DISVAT-VPOPAYW-46.8 AXILLARY. PT INCONT OF BOWEL AND BLADDER. PT UP WITH 1-2 ASSIST. PT GOAL FOR TODAY IS COMPLETE ST EVAL, MONITOR TEMP CLOSELY, OBTAIN URINALYSIS AND PT AND OT. AM ASSESSMENT CHARTED. MEDICATIONS PER AUG. PT REPOSITIONED EVERY 2 HOURS FOR COMFORT. HOURLY ROUNDING OBSERVED. BED IN LOW POSITION. BED ALARM IN PLACE. FALL PRECAUTIONS IN PLACE. CALL LIGHT WITHIN REACH. WILL CONTINUE PLAN OF CARE.
[2019-01-23 12:00] VITALS: BP 103/58
[2019-01-23 16:00] VITALS: BP 120/72
--- NOTE | 2019-01-23 16:33 | NUR ---
I have reviewed the documentation by INES ERAZO from TODAY to 01/23/19 and I concur with it. KRISTAL DESAI
[2019-01-23 19:47] LABS: URINE BILIRUBIN NEGATIVE (Negative); URINE BLOOD NEGATIVE (Negative); URINE CLARITY CLEAR; URINE COLOR YELLOW; URINE GLUCOSE-RANDOM NEGATIVE (Negative); URINE KETONES NEGATIVE (Negative); URINE LEUKOCYTES NEGATIVE (Negative); URINE LEUKOCYTES-REFLEX NEGATIVE (Negative); URINE NITRITE NEGATIVE (Negative); URINE NITRITE-REFLEX NEGATIVE (Negative); URINE PROTEIN NEGATIVE (Negative); URINE SPECIFIC GRAVITY >= 1.030 (1.005-1.030); URINE UROBILINOGEN 0.2 E.U./dl (0.2-1.0)
[2019-01-23 20:00] VITALS: BP 128/60
[2019-01-24] VITALS (7 sets, daily range): BP systolic 111–141; BP diastolic 65–74
--- NOTE | 2019-01-24 02:14 | NUR ---
PT SLEEPY AROUSES EASILY. ORIENTED TO SELF AND PLACE. SLOW RESPONCE TO QUESTIONS. TURN Q 2 HRS. DENIES PAIN. TELEMETRY SHOWS SR. INCONTINENT OF URINE.
[2019-01-24 05:13] LABS: ABSOLUTE EOSINOPHILS 0.1 thou/uL (0.0-0.7); ABSOLUTE LYMPHOCYTES 0.9 thou/uL (0.8-5.3); ABSOLUTE MONOCYTES 0.6 thou/uL (0.0-1.2); ABSOLUTE NEUTROPHILS 3.4 thou/uL (1.6-8.1); BASOPHILS 0.5 %; EOSINOPHILS 2.6 %; HEMATOCRIT 41.4 % (37.0-47.0); HEMOGLOBIN 13.6 gm/dL (12.0-15.0); LYMPHOCYTES 18.1 %; MCH 30.9 pg (26.0-34.0); MCHC 32.9 g/dL (28.0-37.0); MCV 93.8 fL (80.0-100.0); MONOCYTES 11.5 %; MPV 8.6 fl. (7.2-11.1); NUCLEATED RBCS 0 /100WBC; PLATELET COUNT* 163 thou/uL (150-400); POLYS 67.3 %; RBC 4.42 mil/uL (4.20-5.00); RDW-CV 12.4 % (10.5-14.5)
[2019-01-24 05:44] LABS: CALCIUM 8.6 mg/dL (8.5-10.1); CREATININE 0.8 mg/dL (0.6-1.3)
--- NOTE | 2019-01-24 08:52 | CON ---
[address] [address] CONSULTATION Name: BRITANY COOPER Room: [address] IN .R.#: [id number] Admission: 01/19/19 Attend Phys: Bayron Salter, Discharge: Date of : 34 Report #: [id number] THIS REPORT FOR: //name// CC: Sary Sutherlanddevyn Salter MD DATE OF SERVICE: 01/20/2019 PULMONARY CONSULTATION ATTENDING PHYSICIAN: Bayron Salter MD LOCATION: Located in room 224. INDICATION FOR CONSULTATION: Pulmonary emboli, dyspnea. HISTORY OF PRESENT ILLNESS: The patient is an 83-year-old female, nonsmoker, who was admitted to the hospital yesterday afternoon after a decline in her mental status over the past 5 days. She had body weakness. She had some mild shortness of breath. She had occasional episode or two of emesis. She denies any chest pain. She is confused to person, place and time when I see her today. She is eating okay without choking at least at this time. She has had a history of frequent urinary tract infections and had some recently. Her D-dimer was elevated. She had a CT angio of the chest showed moderate amount of pulmonary emboli, probably 30-40% obstruction of her left pulmonary artery and less of that on the right, but with a subsegmental arteries going down to the interlobar artery on the left side, more so on the left and then if you were noted on the right side. She is not in any distress at this time. She has been put on subcutaneous Lovenox 80 mg subcutaneously every 12 hours and tolerating this well. She is somewhat of a high increased fall risk. PAST MEDICAL HISTORY: She was previously hospitalized for influenza A several months ago. She has had metabolic encephalopathy. She has had progressive dementia for the past several years, although appears she can still feed herself and occasionally dress herself. I am not sure how up and ambulatory she is in the skilled nursing and also has a history again progressive dementia over the last 4-5 years. ALLERGIES: SHE HAS ALLERGIES OR INTOLERANCE TO CEFUROXIME, WHICH GIVES HER MILD RASH, NITROFURANTOIN, MACROBID, MILD RASH, SULFAMETHOXAZOLE, MILD RASH AND THEN TRIMETHOPRIM ALSO RASH AND NAUSEA. CURRENT MEDICATIONS: Her skilled nursing meds included donepezil 10 mg daily, Lasix, furosemide 40 mg daily, glucosamine 1500 mg daily, calcium carbonate [address] [place] [address] CONSULTATION Name: BRITANY COOPER Davis Room: [address] IN [facility]#: [id number] Admission: 01/19/19 Attend Phys: Bayron Salter, Discharge: Date of : 34 Report #: [id number] 1 tablet daily, aspirin 81 mg daily, Lexapro 20 mg daily, Naprosyn 220 mg daily, DuoNeb treatments p.r.n. 4 times a day and Magic mouthwash p.r.n., loratadine 10 mg daily. She is on Lovenox 80 mg subcutaneous q12 hours. PAST SURGICAL HISTORY: On her prior surgical history, it should be noted that she had history of localized breast CA, had a lumpectomy about 13 years ago for right-sided mastectomy. I do not think she had any adjuvant radiation or chemotherapy. None known about hormonal therapy. FAMILY HISTORY: Negative for premature cardiopulmonary disease. SOCIAL HISTORY: The patient lives in a skilled nursing in [place]. She is a nonsmoker, nondrinker. Her daughter who is Jihan Renender, I believe is durable power of traffic law attorney. At this time, she is a full code blue. May have to reevaluate that. REVIEW OF SYSTEMS: A 14-review of systems reviewed and negative. The patient is not able to but going from prior records with the only other abnormality has been in admitting H and P. PHYSICAL EXAMINATION: GENERAL: Demented 83-year-old female, confused to person, place and time. After 2 or 3 times, she did think it was January, although she was unsure what year it was, or where she was at. VITAL SIGNS: Currently, her blood pressure is 155/80. Previously, she had been 200/120 upon admit. Heart rate is 96, respirations are 16, and not labored. She was on room air. She had some mild O2 desaturation and then on 2 liters, she is now 95%, previously was 96% yesterday on room air, 5 feet 9 inches tall, weight is 76 kilograms or 160 pounds. HEENT: Unremarkable. Pharynx is clear. NECK: Supple, without nodes. No increased jugular venous pressure. CHEST: Reveals mildly decreased breath sounds in the left lung base with occasional rhonchi noted, but no wheeze. Right chest is clear. CARDIOVASCULAR: Regular rate and rhythm without murmur, gallop or rub. Heart rate is 96. ABDOMEN: Soft, minimally obese. No masses, megaly. EXTREMITIES: She has SCD cuffs on bilaterally, negative for DVT or thrombosis noted. NEUROLOGIC: Grossly intact. She will move all fours to commands and feed herself. Again, not oriented to person, place, and time. LABORATORY DATA: From 01/20/2019, hemoglobin is 13, white count 6200, normal differential, platelets are 141,000. This morning, sodium is 144, potassium is 3.7, being repleted, chloride 108, carbon dioxide 30, anion gap is 6, BUN is 17, creatinine 0.6, glucose is 101. LFTs within normal limits. Calcium is 8.2, glucose is 100. Troponins minimally bumped at 0.06. Albumin is 2.8. [place] [address] CONSULTATION Name: BRITANY COOPER Davis Room: [address] IN [facility].#: [id number] Admission: 01/19/19 Attend Phys: Bayron Salter, Discharge: Date of : 34 Report #: [id number] Prealbumin is pending. D-dimer was 8.38, which is elevated. Coags were normal. CT angio of the chest shows linear clot in the left pulmonary artery with some propagation down the left lower lobe interlobar artery and in the right lower lobe interlobar artery. Also had some clots. Again, about 30-40% clot burden, no prior PEs are noted on any exams. IMPRESSION: 1. Unprovoked pulmonary emboli, etiology unclear, could be from either urinary tract infections or for the patient being at bed rest. Venous Dopplers are pending. 2. Frequent urinary tract infections. 3. Altered mental status could be related to accelerated hypertension. 4. Dementia with a history of frequent urinary tract infections and accelerated hypertension. PLAN: Continue meds and keep on Lovenox at this time either Coumadin at 5 mg daily to see if we can get that acceptable to her. If not, they may have to go to either Eliquis or Xarelto. Probably, will need lifelong therapy. She is somewhat of a fall risk, so go and do some venous Dopplers and if she has positive clots there may consider an IVC filter at some point in time, but I think she is going to need therapy for the next 6-12 months and possibly indefinitely certainly needs a followup CT angio of the chest and followup venous Dopplers in 6 months. This has been a 34-minute critical care consult. We will follow along with you while she is in the hospital. <ELECTRONICALLY SIGNED> By: Austen Avery MD 01/24/19 0852 [id number] Avery MD /nt
--- NOTE | 2019-01-24 12:26 | NUR ---
SW faxed referral to [facility] SNF as recommended; SW to continue to follow to assist with safe dc planning. DC will be pending acceptance from facility and insurance authorization.
--- NOTE | 2019-01-24 12:46 | NUR ---
ASSUMED CARE OF PT AT 0730. PT UP TO CHAIR FOR BREAKFAST. A&0X2-3. FORGETFUL FLAT AFFECT. PT TRACING SR ON THE TELEGRAPHIC TYPEWRITER OPERATOR. ON 2L NC SAT 97%. PT DENIES ANY PAIN OR SHORTNESS OF BREATH. PT UP WITH 1-2 ASSIST WALKER AND GAIT BELT. PT GOAL FOR TODAY IS UP TO CHAIR FOR MEALS, COMPLETE MRI HEAD AND THORACIC SPINE AND DISCHARGE PLANNING TO SNF. AM ASSESSMENT CHARTED. MEDICATIONS PER AUG. PT REPOSITIONED EVERY 2 HOURS FOR COMFORT. HOURLY ROUNDING OBSERVED. BED IN LOW POSITION. BED/CHAIR ALARM IN PLACE. FALL PRECAUTIONS IN PLACE. CALL LIGHT WITHIN REACH. WILL CONTINUE PLAN OF CARE.
--- NOTE | 2019-01-24 18:28 | NUR ---
MRI HEAD AND MRI SPINE RESULTS NOTED. REFER TO RESULTS. RESULTS CALLED TO DR ENCISO. NO NEW ORDERS RECEIVED AT THIS TIME, HE WILL SEE PT IN AM. PT PROGRESSING TOWARDS GOALS. UP TO CHAIR FOR MEALS WITH 1-2 ASSIST, WEAKNESS NOTED. PT INCONT OF BOWEL AND BLADDER THROUGHOUT SHIFT. CONTINUES TO TRACE SR ON THE GUITAR INSTRUCTOR. ON 2L NC SAT UPPER 90'S. PT DENIES ANY PAIN OR SHORTNESS OF BREATH. DAUGHTER HERE THIS AFTERNOON AND UPDATED ON CURRENT PLAN OF CARE. POSSIBLE DISCHARGE TO SENIOR LIVING TOMORROW 01/25. MEDICATIONS PER AUG. PT REPOSITIONS SELF. HOURLY ROUNDING OBSERVED. BED IN LOW POSITION. CALL LIGHT WITHIN REACH. WILL CONTINUE PLAN OF CARE.
[2019-01-25] VITALS: BP 119/60
[2019-01-25 04:00] VITALS: BP 158/91
[2019-01-25 08:00] VITALS: BP 143/57
--- NOTE | 2019-01-25 11:05 | NUR ---
KASI received notification of [facility] acceptance and insurance auth for pt to dc to SNF today. Transportation scheduled for 1300. KASI spoke with pt dtr who is aware and in agreement with plan. Pt nurse aware and chart to be copied for continuation of care. THERESA has dc orders/med list by fax. THERESA ph [phone]
[2019-01-25 12:06] VITALS: BP 131/80
[2019-01-25] MEDS ORDERED: LIPITOR40 MG PO (13:21)
[2019-01-25] MEDS ORDERED: LEVAQUIN 500 M500 M2 PO (13:22)
[2019-01-25 13:25] LABS: ALBUMIN 2.9 g/dL (3.4-5.0); CALCIUM 8.9 mg/dL (8.5-10.1); CREATININE 0.8 mg/dL (0.6-1.3); POTASSIUM 4.2 mmol/L (3.5-5.1); TOTAL BILIRUBIN 0.3 mg/dL (<0.1-1.0); TOTAL PROTEIN 6.3 g/dL (6.4-8.2)
[2019-01-25] MEDS ORDERED: ELIQUIS5 MG PO (13:44)
[2019-01-25 13:46] VITALS: BP 131/80
--- NOTE | 2019-01-25 14:14 | 2DMMODE ---
[place] [address] 2 D/M-MODE ECHOCARDIOGRAM Name: BRITANY COOPER Room: [address] IN [facility]#: [id number] Admission: 01/19/19 Attend Phys: Bayron Messina Discharge: Date of : 33 Date of Service: 01/25/19 1413 Report #: [id number] THIS REPORT FOR: //name// APPROVED REPORT Study performed: 01/25/2019 11:51:44 EXAM: Comprehensive 2D, Doppler, and color-flow Echocardiogram Patient Location: In-Patient Room #: [facility] Status: routine BSA: 1.98 HR: 80 bpm BP: 131/80 mmHg Rhythm: NSR Other Information Study Quality: Excellent Indications Pulmonary Embolism CVA/TIA Sepsis Echo Enhancing Agent Indication: Rule out Shunt Agent(s) / Amount(s) Used: Agitated Saline 10 cc 2D Dimensions IVSd: 12.27 (7-11mm) LVOT Diam: 19.76 (18-24mm) LVDd: 42.55 mm PWd: 11.69 (7-11mm) Ascending Ao: 37.00 (22-36mm) LVDs: 29.08 (25-40mm) Aortic Root: 32.40 mm Volumes Left Atrial Volume (Systole) LA ESV Index: 25.30 mL/m2 Aortic Valve AoV Peak Isaiah.: 1.44 m/s AO Peak Gr.: 8.32 mmHg LVOT Max P.26 mmHg AO Mean Gr.: 4.68 mmHg LVOT Mean P.88 mmHg LVOT Max V: 1.35 m/s AO V2 VTI: 22.04 cm LVOT Mean V: 0.76 m/[place] [address] 2 D/M-MODE ECHOCARDIOGRAM Name: BRITANY COOPER Room: [address] IN ..#: [id number] Admission: 01/19/19 Attend Phys: Bayron Messina Discharge: Date of : 33 Date of Service: 01/25/19 1413 Report #: [id number] FANNY (VTI): 2.85 cm2 LVOT V1 VTI: 20.45 cm Mitral Valve E/A Ratio: 0.53 MV Decel. Time: 290.07 ms MV E Max Isaiah.: 0.48 m/s MV PHT: 84.12 ms MVA (PHT): 2.62 cm2 TDI E/Lateral E': 4.36 E/Medial E': 8.00 Medial E' Isaiah.: 0.06 m/s Lateral E' Isaiah.: 0.11 m/s Pulmonary Valve PV Peak Isaiah.: 0.93 m/s PV Peak Gr.: 3.43 mmHg Tricuspid Valve RAP Estimate: 5.00 mmHg TR Peak Gr.: 25.11 mmHg RVSP: 30.00 mmHg PA Pressure: 30.00 mmHg Left Ventricle The left ventricle is normal size. There is normal LV segmental wall motion. Mild concentric left ventricular hypertrophy. Left ventricular systolic function is normal. The left ventricular ejection fraction is within the normal range. LVEF is 60-65%. Grade I - abnormal relaxation pattern. Right Ventricle The right ventricle is normal size. The right ventricular systolic function is normal. Atria The left atrium size is normal. Interatrial septum is intact without evidence of ASD or PFO. The right atrium size is normal. Aortic Valve The aortic valve is normal in structure. No aortic regurgitation is present. There is no aortic valvular stenosis. Mitral Valve The mitral valve is normal in structure. Trace mitral regurgitation. No evidence of mitral valve stenosis[place] [address] 2 D/M-MODE ECHOCARDIOGRAM Name: BRITANY COOPER Davis Room: [address]#: [id number] Admission: 01/19/19 Attend Phys: Bayrno Messina Discharge: Date of : 33 Date of Service: 01/25/19 1413 Report #: [id number] The tricuspid valve is normal in structure. Trace tricuspid regurgitation. estimated pa pressure 30 mm hg Pulmonic Valve Pulmonic valve is not well visualized. Trace pulmonic regurgitation. Great Vessels The aortic root is normal in size. IVC is normal in size and collapses >50% with inspiration. Pericardium There is no pericardial effusion. <Conclusion> Mild concentric left ventricular hypertrophy. LVEF is 60-65%. Interatrial septum is intact without evidence of ASD or PFO. <ELECTRONICALLY SIGNED> By: Shan De La Torre MD, [facility] 01/25/19 1413 1413 1413 Shan De La Torre MD, FACC /INF
--- NOTE | 2019-01-25 15:29 | NUR ---
PT ALERT, ORIENTED TO SELF ONLY. NIH 1 AND ALL VSS ON ROOM AIR. DENIES CP, SOA. DAUGHTER AT BEDSIDE FOR MOST OF SHIFT. BED/CHAIR ALARM ON, CALL LIGHT IN REACH. PLEASE SEE ASSESSMENT FOR ADDITIONAL INFORMATION. WILL CONT TO MONITOR
[2019-01-26 02:06] LABS: GLYCOHEMOGLOBIN (HGB A1C) 5.4 % (4.8-5.6)
--- NOTE | 2019-01-26 10:45 | EEG ---
[address] [address] EEG STUDY REPORT Name: ALLISONRUBENMAXIMO Cannon Room: [address] IN .R.#: [id number] Admission: 01/19/19 Attend Phys: Bayron Salter, Discharge: 01/25/19 Date of : 33 Report #: [id number] THIS REPORT FOR: //name// CC: Lacho Salter DATE OF SERVICE: 01/21/2019 This patient is being evaluated for altered mental status. EEG was done by placing the electrodes by standard 10-20 system of electrode placement. Both referential and sequential montages were used. The background activity was about 8 Hz and 30 microvolts. It was a symmetrical activity. The patient went to sleep and that is associated with bilateral slowing and vertex sharp waves. IMPRESSION: This is an abnormal EEG, which is disorganized and poorly formed. That is a nonspecific abnormality, which can occur with encephalopathy, dementia, effects of psychotropic medication, etc. Clinical correlation is recommended. Thank you very much for this referral. <ELECTRONICALLY SIGNED> By: Albaro Lopez MD 01/26/19 1045 1707 [id number] Lopez MD /nt
--- NOTE | 2019-01-26 10:45 | CON ---
[address] [address] CONSULTATION Name: BRITANY COOPER Room: [address] IN .R.#: [id number] Admission: 01/19/19 Attend Phys: Bayron Salter, Discharge: 01/25/19 Date of : 33 Report #: [id number] THIS REPORT FOR: //name// CC: Lacho Salter DATE OF SERVICE: 01/20/2019 HISTORY OF PRESENT ILLNESS: This is an 83-year-old female patient who was seen by me for any neurological etiology for the patient's altered mental status. The patient did not provide any reliable history. It looks like this patient had trouble with altered mental status whenever there is a systemic infection. She lives in a long-term facility. I talked to the nurses looking after this patient. No family member is here, but record indicates that she does develop UTI and then she has altered mental status. REVIEW OF SYSTEMS: Positive for what looks like hypoxia and deep vein thrombosis. She also has hypertension. She also has a history of baseline dementia. A 14-point review of system was carried out and it was mainly positive for above. PAST MEDICAL HISTORY: Positive for dementia. FAMILY HISTORY: Unavailable. SOCIAL HISTORY: From the nurses, it looks like she lives in a long-term. PHYSICAL EXAMINATION: NEUROLOGIC: The patient's examination is pretty limited. She is alert. She cannot tell me what hospital she is in. She could not tell me the day. She could not name the president. She moves all 4 extremities, but slowly. I do not see any focality in cranial nerve examination. There is no meningeal sign. CARDIAC: Appears unremarkable. LUNGS: Does not appear to be any marked respiratory difficulty in spite of the patient's emboli. VITAL SIGNS: Blood pressure is 168/69, respirations 16, pulse is 79, temperature is 98.5. LABORATORY DATA: Indicate a white count of 6.2. She has 16-[address] scan of the head was reviewed and that was mostly unremarkable. IMPRESSION AND PLAN: This patient's symptom is most likely secondary to encephalopathy, which is superimposed upon the patient's dementia. I think we should mainly monitor her and see if she improves after treating her systemic conditions and do the further workup depending upon that. [place] [id number] CONSULTATION Name: BRITANY COOPER Room: [address]#: [id number] Admission: 01/19/19 Attend Phys: Bayron Salter, Discharge: 01/25/19 Date of : 33 Report #: [id number] to follow up this patient over the weekend with you, but main thing is to monitor if she improves after systemic condition improves. <ELECTRONICALLY SIGNED> By: Albaro Lopez MD 01/26/19 1045 1655 [id number] Lopez MD /tee
== END 2019-01-25 16:15 | DRG 871 ==
LOC: M.ERS 09:41 → M.2W 11:46 → M.TBA-ER 11:46 → M.2W 12:40
PROVIDERS: Emergency Medicine Emergency Medical Services; Internal Medicine; Internal Medicine Infectious Disease; ADMIT Family Medicine
DX: A41.9 Sepsis, unspecified organism (principal); G93.41 Metabolic encephalopathy; I26.92 Saddle embolus of pulmonary artery without acute cor pulmonale; J69.0 Pneumonitis due to inhalation of food and vomit; J96.91 Respiratory failure, unspecified with hypoxia; I63.9 Cerebral infarction, unspecified; N39.0 Urinary tract infection, site not specified; E87.2 Acidosis; E44.0 Moderate protein-calorie malnutrition; I82.411 Acute embolism and thrombosis of right femoral vein; I82.431 Acute embolism and thrombosis of right popliteal vein; I82.441 Acute embolism and thrombosis of right tibial vein; F03.90 Unspecified dementia, unspecified severity, without behavioral disturbance, psychotic disturbance, mood disturbance, and anxiety; M19.90 Unspecified osteoarthritis, unspecified site; I10 Essential (primary) hypertension; Z68.26 Body mass index [BMI] 26.0-26.9, adult; Z85.3 Personal history of malignant neoplasm of breast; Z87.891 Personal history of nicotine dependence; Z90.11 Acquired absence of right breast and nipple; Z79.82 Long term (current) use of aspirin; Z79.899 Other long term (current) drug therapy; Z88.1 Allergy status to other antibiotic agents; Z88.2 Allergy status to sulfonamides; Z88.8 Allergy status to other drugs, medicaments and biological substances